=== PATIENT | male | born 1960 | race African-American/Black ===

== ENCOUNTER 2019-08-12 17:31 | Inpatient (IN) | payer MEDICAID ==
[~2019-08-12] VITALS: Ht 170.2 cm; Wt 68.0 kg
[2019-08-12 17:31] VITALS: BP 136/96
[~2019-08-12 17:31] MED LIST: CEPHALEXIN500 MG ORAL; IBUPROFEN600 MG ORAL
--- NOTE | 2019-08-12 17:31 | NUR ---
ED Nurse Note: Pt brought in by ambulance c/o generalized weakness x 4 days. Pt has hx hiv. Respirations even and unlabored on room air. Vitals stable as documented. Left chest defibrilator noted.
--- NOTE | 2019-08-12 17:40 | NUR ---
ED Nurse Note: Patient aslo c/o right shoulder pain. Denies fall/ injury.
--- NOTE | 2019-08-12 17:57 | NUR ---
ED Nurse Note: IV line established. Blood specimen collected and sent to lab.
[2019-08-12 18:52] LABS: ANION GAP 15 mmol/L (5-15); BLOOD UREA NITROGEN 27 mg/dL (7-18); CALCIUM 9.1 MG/DL (8.5-10.1); CARBON DIOXIDE 21 MMOL/L (21-32); CHLORIDE 106 MMOL/L (98-107); CREATININE 2.2 MG/DL (0.55-1.30); POTASSIUM 3.5 MMOL/L (3.5-5.1); SODIUM 142 MMOL/L (136-145)
[2019-08-12 18:59] LABS: BASOPHILS % (AUTO) 1.9 % (0.0-2.0); EOSINOPHILS % (AUTO) 1.2 % (0.0-3.0); HEMOGLOBIN 12.4 G/DL (14.2-18.0); LYMPHOCYTES % (AUTO) 33.4 % (20.0-45.0); MEAN CORPUSCULAR VOLUME 97 FL (80-99); MONOCYTES % (AUTO) 16.1 % (1.0-10.0); NEUTROPHILS % (AUTO) 47.4 % (45.0-75.0); PLATELET COUNT 296 K/UL (150-450); RED CELL DISTRIBUTION WIDTH 18.9 % (11.6-14.8); WHITE BLOOD COUNT 7.8 K/UL (4.8-10.8)
--- NOTE | 2019-08-12 19:05 | NUR ---
HAND-OFF: Report given to Margarita GRIMALDO. Endorsed plan of care.
[2019-08-12 19:10] LABS: ALANINE AMINOTRANSFERASE 85 U/L (12-78); ALBUMIN 3.1 G/DL (3.4-5.0); ALBUMIN/GLOBULIN RATIO 0.8 (1.0-2.7); ALKALINE PHOSPHATASE 168 U/L (46-116); ASPARTATE AMINO TRANSFERASE 101 U/L (15-37); BILIRUBIN,TOTAL 2.1 MG/DL (0.2-1.0)
[2019-08-12 19:11] LABS: BILIRUBIN,DIRECT 1.1 MG/DL (0.0-0.3)
[2019-08-12] MEDS ORDERED: COREG6.25 MG ORAL (19:57)
[2019-08-12] MEDS ORDERED: ASPIR 8181 MG ORAL (19:57)
[2019-08-12] MEDS ORDERED: LISINOPRIL5 MG ORAL (19:57)
[2019-08-12] MEDS ORDERED: GENVOYA TABLET1 EACH PO (19:57)
[2019-08-12] MEDS ORDERED: AMIODARONE HCL100 MG ORAL (19:57)
--- NOTE | 2019-08-12 20:59 | Emergency Room Report ---
History of Present Illness General Chief Complaint: Generalized Weakness Source: Patient, EMS Present Illness HPI 59-year-old male presents ED for evaluation. Brought in by EMS from home. States for the last 4 days has been increasingly short of breath when walking. Notes some shortness of breath when talking. Denies fevers or chills. Denies chest pain. History of ICD. History of HIV. States he is compliant with his medications. No other aggravating relieving factors. Denies any other associated symptoms Allergies: Coded Allergies: No Known Allergies (Verified , 05/29/07) Patient History Past Medical History: HTN, VA, HIV Past Surgical History: none Pertinent Family History: none Social History: Denies: smoking, alcohol use, drug use Immunizations: UTD Reviewed Nursing Documentation: PMH: Agreed; PSxH: Agreed Nursing Documentation-PMH Hx Cardiac Problems: Yes - VA 2004 HIV+ Hx Hypertension: Yes Review of Systems All Other Systems: negative except mentioned in HPI Physical Exam Vital Signs Date Time Temp Pulse Resp B/P (MAP) Pulse Ox O2 Delivery O2 Flow Rate FiO2 08/12/19 17:15 98.4 69 18 136/96 (109) 98 Room Air Sp02 EP Interpretation: reviewed, normal General Appearance: no apparent distress, alert, GCS 15, non-toxic Head: normocephalic, atraumatic Eyes: bilateral eye normal inspection, bilateral eye PERRL ENT: hearing grossly normal, normal pharynx, no angioedema, normal voice Neck: full range of motion, supple/symm/no masses Respiratory: chest non-tender, lungs clear, normal breath sounds, speaking full sentences Cardiovascular #1: regular rate, rhythm, no edema Cardiovascular #2: 2+ carotid (R), 2+ carotid (L), 2+ radial (R), 2+ radial (L) , 2+ dorsalis pedis (R), 2+ dorsalis pedis (L) Gastrointestinal: normal bowel sounds, non tender, soft, non-distended, no guarding, no rebound Rectal: deferred Genitourinary: normal inspection, no CVA tenderness Musculoskeletal: back normal, normal range of motion, gait/station normal, non- tender Neurologic: alert, motor strength/tone normal, oriented x3, sensory intact, responsive, speech normal Psychiatric: judgement/insight normal, memory normal, mood/affect normal, no suicidal/homicidal ideation Reflexes: 3+ bicep (R), 3+ bicep (L), 3+ tricep (R), 3+ tricep (L), 3+ knee (R) , 3+ knee (L) Lymphatic: no adenopathy Medical Decision Making Diagnostic Impression: Primary Impression: CHF exacerbation Qualified Codes: I50.9 - Heart failure, unspecified Additional Impressions: HIV disease ICD (implantable cardioverter-defibrillator) in place Renal insufficiency ER Course Hospital Course 59-year-old male presents ED complaining of shortness of breath Differential diagnoses include: VA/unstable angina, contusion, muscle strain, PTX, rib fracture Clinical course Patient placed on stretcher. 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 After initial history and physical I ordered labs, EKG, chest x-ray labs reviewed- no leukocytosis, hemoglobin/hematocrit stable, BUN/creatinine elevated, troponins negative, BNP elevated EKG - NSR, no acute ischemic changes intepreted by me Chest x-ray- cardiomegaly. interstitial congestion. ICD Lasix given. Case discussed with Dr. Soni and he agreed to accept the patient to his service for further care and support I. I feel this is a highly complex case requiring extensive working including EKG/Rhythm strip, Xray/CT/US, Blood/urine lab work, repeat exams while in ED, and administration of strong opiates/narcotics for pain control, admission to hospital or close patient follow up. Diagnosis - CHF exacerbation, renal insufficiency, HIV, ICD admitted to telemetry in serious condition Labs Test 08/12/19 18:22 White Blood Count 7.8 K/UL (4.8-10.8) Red Blood Count 4.10 M/UL (4.70-6.10) Hemoglobin 12.4 G/DL (14.2-18.0) Hematocrit 40.0 % (42.0-52.0) Mean Corpuscular Volume 97 FL (80-99) Mean Corpuscular Hemoglobin 30.3 PG (27.0-31.0) Mean Corpuscular Hemoglobin Concent 31.1 G/DL (32.0-36.0) Red Cell Distribution Width 18.9 % (11.6-14.8) Platelet Count 296 K/UL (150-450) Mean Platelet Volume 9.2 FL (6.5-10.1) Neutrophils (%) (Auto) 47.4 % (45.0-75.0) Lymphocytes (%) (Auto) 33.4 % (20.0-45.0) Monocytes (%) (Auto) 16.1 % (1.0-10.0) Eosinophils (%) (Auto) 1.2 % (0.0-3.0) Basophils (%) (Auto) 1.9 % (0.0-2.0) Sodium Level 142 MMOL/L (136-145) Potassium Level 3.5 MMOL/L (3.5-5.1) Chloride Level 106 MMOL/L (98-107) Carbon Dioxide Level 21 MMOL/L (21-32) Anion Gap 15 mmol/L (5-15) Blood Urea Nitrogen 27 mg/dL (7-18) Creatinine 2.2 MG/DL (0.55-1.30) Estimat Glomerular Filtration Rate 37.1 mL/min (>60) Glucose Level 135 MG/DL (74-106) Calcium Level 9.1 MG/DL (8.5-10.1) Total Bilirubin 2.1 MG/DL (0.2-1.0) Direct Bilirubin 1.1 MG/DL (0.0-0.3) Aspartate Amino Transf (AST/SGOT) 101 U/L (15-37) Alanine Aminotransferase (ALT/SGPT) 85 U/L (12-78) Alkaline Phosphatase 168 U/L (46-116) Troponin I 0.016 ng/mL (0.000-0.056) Pro-B-Type Natriuretic Peptide 6982 pg/mL (0-125) Total Protein 7.0 G/DL (6.4-8.2) Albumin 3.1 G/DL (3.4-5.0) Globulin 3.9 g/dL Albumin/Globulin Ratio 0.8 (1.0-2.7) EKG Diagnostic Results Rate: normal Rhythm: NSR ST Segments: no acute changes ASA given to the pt in ED: No Rhythm Strip Diag. Results EP Interpretation: yes Rhythm: NSR, no PVC's, no ectopy Chest X-Ray Diagnostic Results Chest X-Ray Diagnostic Results : Chest X-Ray Ordered: Yes # of Views/Limited/Complete: 1 View Indication: Shortness of Breath EP Interpretation: Yes Interpretation: no consolidation, no effusion, other - cardiomegaly. interstitial congestion. ICD Impression: Other - CHF Electronically Signed by: Electronically signed by Jamal Young MD Last Vital Signs Date Time Temp Pulse Resp B/P (MAP) Pulse Ox O2 Delivery O2 Flow Rate FiO2 08/12/19 17:31 98.4 69 18 136/96 98 Room Air Status: improved Disposition: ADMITTED INPATIENT Condition: Serious Referrals: [facility],REFERRING (PCP) Jamal Young MD Aug 12, 2019 20:59
[2019-08-12 21:00] VITALS: BP 132/89
--- NOTE | 2019-08-12 21:00 | NUR ---
ED Nurse Note: Pt resting in bed, eyes open, states he feels anxious, provided therapeutic listening. will continue to monitor
[2019-08-12 23:00] VITALS: BP 134/92
--- NOTE | 2019-08-12 23:07 | NUR ---
ED Nurse Note: Pt resting in bed with eyes closed, non-labored breathing, no signs of distress. Will continue to monitor
[2019-08-13 01:00] VITALS: BP 138/67
--- NOTE | 2019-08-13 02:21 | NUR ---
ED Nurse Note: Pt palced in [place] bed
[2019-08-13 03:00] VITALS: BP 124/68
--- NOTE | 2019-08-13 04:30 | NUR ---
ED Nurse Note: Pt resting in bed, no signs of distress. offered water and juice, will continue to monitor
[2019-08-13 05:08] VITALS: BP 132/71
--- NOTE | 2019-08-13 07:04 | NUR ---
HAND-OFF: Report given to DILLAN Palm.
--- NOTE | 2019-08-13 07:10 | NUR ---
ED Nurse Note: Report received from DILLAN Avila. Pt in stable condition, sleeping in bed. No signs of acute distress noted.
--- NOTE | 2019-08-13 07:45 | NUR ---
ED Nurse Note: Report given to DILLAN Alarcon on 2 E
--- NOTE | 2019-08-13 08:00 | NUR ---
ED Nurse Note: Pt transported safely to 2E on monitor. DILLAN Barron @ bedside, belongings verified.
--- NOTE | 2019-08-13 08:00 | NUR ---
NURSE NOTES: Received report from Arpita ED RN. Pt is A/Ox4, breathing even and unlabored in RA. Pt denies any pain, no s/sx of acute distress. Tele monitor attached, assessment performed, vitals obtained. Bed on lowest position, call light within reach. Will contact the primary MD to get admission orders. Will continue to monitor.
[2019-08-13] MEDS: Aspirin Baby 81mg ORAL SCH (11:06)
[2019-08-13] MEDS: Amiodarone 200mg tab ORAL SCH (11:07)
[2019-08-13] MEDS: Lisinopril 2.5mg tab ORAL SCH (11:07)
[2019-08-13] MEDS: Carvedilol 6.25mg Tab ORAL SCH ×2 (11:07→21:23)
--- NOTE | 2019-08-13 11:59 | Cardiac Electrophysiology PN ---
Subjective Subjective [id number] Objective Last 24 Hour Vital Signs Date Time Temp Pulse Resp B/P (MAP) Pulse Ox O2 Delivery O2 Flow Rate FiO2 08/13/19 11:07 135/74 08/13/19 11:07 74 135/74 08/13/19 08:41 Room Air 08/13/19 08:00 98.2 74 14 135/74 99 Room Air 08/13/19 05:08 98.4 71 14 132/71 99 Room Air 08/13/19 03:00 98.1 69 18 124/68 99 Room Air 08/13/19 01:00 98.1 67 18 138/67 99 Room Air 08/12/19 23:00 98.1 65 16 134/92 98 Room Air 08/12/19 21:00 98.2 72 16 132/89 98 Room Air 08/12/19 17:31 98.4 69 18 136/96 98 Room Air 08/12/19 17:31 69 18 Room Air 08/12/19 17:15 98.4 69 18 136/96 (109) 98 Room Air Intake and Output 08/12/19 08/13/19 19:00 07:00 Output Total 1800 ml Balance -1800 ml Output Urine Total 1800 ml Laboratory Tests Test 08/12/19 18:22 White Blood Count 7.8 K/UL (4.8-10.8) Red Blood Count 4.10 M/UL (4.70-6.10) L Hemoglobin 12.4 G/DL (14.2-18.0) L Hematocrit 40.0 % (42.0-52.0) L Mean Corpuscular Volume 97 FL (80-99) Mean Corpuscular Hemoglobin 30.3 PG (27.0-31.0) Mean Corpuscular Hemoglobin Concent 31.1 G/DL (32.0-36.0) L Red Cell Distribution Width 18.9 % (11.6-14.8) H Platelet Count 296 K/UL (150-450) Mean Platelet Volume 9.2 FL (6.5-10.1) Neutrophils (%) (Auto) 47.4 % (45.0-75.0) Lymphocytes (%) (Auto) 33.4 % (20.0-45.0) Monocytes (%) (Auto) 16.1 % (1.0-10.0) H Eosinophils (%) (Auto) 1.2 % (0.0-3.0) Basophils (%) (Auto) 1.9 % (0.0-2.0) Sodium Level 142 MMOL/L (136-145) Potassium Level 3.5 MMOL/L (3.5-5.1) Chloride Level 106 MMOL/L (98-107) Carbon Dioxide Level 21 MMOL/L (21-32) Anion Gap 15 mmol/L (5-15) Blood Urea Nitrogen 27 mg/dL (7-18) H Creatinine 2.2 MG/DL (0.55-1.30) H Estimat Glomerular Filtration Rate 37.1 mL/min (>60) Glucose Level 135 MG/DL (74-106) H Calcium Level 9.1 MG/DL (8.5-10.1) Total Bilirubin 2.1 MG/DL (0.2-1.0) H Direct Bilirubin 1.1 MG/DL (0.0-0.3) H Aspartate Amino Transf (AST/SGOT) 101 U/L (15-37) H Alanine Aminotransferase (ALT/SGPT) 85 U/L (12-78) H Alkaline Phosphatase 168 U/L (46-116) H Troponin I 0.016 ng/mL (0.000-0.056) Pro-B-Type Natriuretic Peptide 6982 pg/mL (0-125) H Total Protein 7.0 G/DL (6.4-8.2) Albumin 3.1 G/DL (3.4-5.0) L Globulin 3.9 g/dL Albumin/Globulin Ratio 0.8 (1.0-2.7) L Jesus Eid MD Aug 13, 2019 11:59
--- NOTE | 2019-08-13 12:33 | Diagnostic Imaging Report ---
Indication: Dyspnea Comparison: 06/16/2008 A single view chest radiograph was obtained. Findings: The heart is enlarged. Pulmonary vascularity is mildly prominent. There is a pacemaker on the left again noted. Bones are osteopenic. There is an irregularity of the right first rib which may been present previously. This appears to be an old fracture which should be an unusual location for a rib fracture. IMPRESSION: Mild CHF suspected. Unusual appearance of the right first rib
--- NOTE | 2019-08-13 16:29 | Diagnostic Imaging Report ---
Indication: Abdominal pain Technique: Grayscale and duplex Doppler imaging of the abdomen performed. Comparison: None Findings: The liver is unremarkable. Doppler interrogation of the main portal vein shows patency. There is no definite surface nodularity of the liver. The spleen is normal size. There is no biliary ductal dilatation identified. Gallbladder is unremarkable. There demonstrated part of the pancreas, aorta and IVC show no definite abnormalities. Both kidneys appear unremarkable. There is no hydronephrosis. Left kidney is 9.2 cm. Right kidney 8.9 cm in length. There is some thickening of the wall the urinary bladder. The prostate is normal in size. IMPRESSION: No acute findings. Mild thickening of the bladder wall. Correlate for chronic cystitis.
--- NOTE | 2019-08-13 16:45 | History and Physical Report ---
DATE OF ADMISSION: 08/12/2019 DATE AND TIME SEEN: 08/13/2019 at 2 p.m. CONSULTANTS: 1. Alfredo Bettencourt M.D. 2. Jesus Eid M.D. 3. Norman Pope M.D CHIEF COMPLAINT: Short of breath, renal insufficiency, CHF. BRIEF HISTORY: This is a 59-year-old male with history of HIV presents with 2 days increased shortness of breath, came to [facility], diagnosed with the above, admitted to medical floor for further treatment. Currently, calm in bed, feeling little bit better. No complaint. REVIEW OF SYSTEMS: No chest pain. Slight short of breath. No nausea, vomiting, or diarrhea. PAST MEDICAL HISTORY: Includes CHF, HIV, and renal insufficiency. PAST SURGICAL HISTORY: ICD. MEDICATIONS: Furosemide, amiodarone, aspirin, carvedilol, lisinopril, ibuprofen. ALLERGIES: Denies. SOCIAL HISTORY: Positive smoke. Occasional alcohol. Positive marijuana use. PHYSICAL EXAMINATION: GENERAL: Calm in bed, oriented x3, no acute distress. VITAL SIGNS: Temperature is 98 degrees, pulse 74, respirations 14, blood pressure 135/74. CARDIOVASCULAR: No murmur. LUNGS: Poor air exchange. ABDOMEN: Bowel sound distant. EXTREMITIES: No cyanosis, clubbing, or edema. NEUROLOGIC: The patient moves all extremities, slightly weak. LABORATORY AND DIAGNOSTIC DATA: Labs at this time show hemoglobin and hematocrit 12/40, otherwise CBC is normal. BMP shows BUN/creatinine 27/2.2. Glucose 135. Troponin 0.016. BNP 6982. Albumin 3.1. ASSESSMENT: 1. Shortness of breath. 2. Renal insufficiency. 3. Anemia. 4. CHF. 5. Malnutrition. 6. HIV. PLAN: 1. O2, pulmonary treatment. 2. Blood pressure, pain control. 3. Dietary followup. 4. PT, dietary evaluation. 5. CBC, BMP in the morning. 6. Nephrology evaluation by Dr. Rivera. Prakash Soni D.O. DR: DELGADO JOB#: [id number] CC:
--- NOTE | 2019-08-13 17:45 | Consultation ---
DATE OF CONSULTATION: 08/13/2019 CONSULTING PHYSICIAN: Marshall Rivera M.D. REFERRING PHYSICIAN: Prakash Soni D.O. REASON FOR CONSULTATION: 1. Acute kidney injury. 2. CKD, stage 3B. Baseline creatinine 1.5. HISTORY OF PRESENT ILLNESS: The patient is a 59-year-old gentleman admitted overnight for further evaluation and care from home by EMS for four days of worsening shortness of breath and difficulty walking. The patient states that he has noted that with increased walking, his shortness of breath has been worsened. He has been on HIV medications and compliant and recently had to be changed due to an elevation in creatinine. The patient states the last creatinine by his HIV doctor noted was 1.5. Denies any current nausea, vomiting, or diarrhea. PAST MEDICAL HISTORY: 1. Hypertension. 2. Myocardial infarction. 3. HIV. 4. CKD, stage 3B. PAST SURGICAL HISTORY: None. ALLERGIES: No known drug allergies. FAMILY HISTORY: Hypertension. SOCIAL HISTORY: No tobacco, alcohol, or illicit drug use. REVIEW OF SYSTEMS: NEUROLOGIC: The patient denies headache, change in vision, syncope, or presyncopal episodes. CARDIOVASCULAR: No current chest pain, palpitations, or angina. PULMONARY: No difficulty breathing, productive cough, or sputum. GASTROINTESTINAL/GENITOURINARY: No change in urinary or bowels habits. No nausea, vomiting, or diarrhea. ENDOCRINOLOGY: No night sweats, fever, or chills. MUSCULOSKELETAL: The patient is feeling weak, tired and fatigued. PHYSICAL EXAMINATION: VITAL SIGNS: Blood pressure 135/74, pulse 74, temperature 98.2, and respiratory rate 14. 99% oxygen saturation on room air. GENERAL: The patient is awake and alert, not in distress. HEENT: Extraocular muscles intact. No lymphadenopathy noted. Oropharyngeal mucosa is clear and dry. CARDIOVASCULAR: S1, S2. No rubs or gallops. Regular rate. PULMONARY: Clear to auscultation bilaterally. No rales, rhonchi or wheezes. ABDOMEN: Nondistended and nontender. EXTREMITIES: No edema noted. LABORATORY DATA: Labs dated August 12, 2019, white cell count 7.8 and platelet count 296,000. Creatinine 2.2, potassium 3.5, sodium 142. ASSESSMENT AND PLAN: 1. Acute kidney injury on chronic kidney disease, stage 3B. At this time, most likely secondary to component of volume depletion. At this time, we will discontinue NSAIDs. Have repeated stat laboratories. The patient was given IV fluids in the ER and now is on Lasix. If renal function has not improved, we will temporarily hold Lasix. 2. Mild congestive heart failure. At this time, the patient's volume clinically euvolemic at this time. If renal function is not improving, we will discontinue Lasix and lisinopril. 3. HIV. Infectious Disease to evaluate and manage. Marshall Rivera MD DR: MURALI JOB#: [id number] CC:
[2019-08-13 17:48] LABS: ANION GAP 16 mmol/L (5-15); BLOOD UREA NITROGEN 26 mg/dL (7-18); CALCIUM 8.7 MG/DL (8.5-10.1); CARBON DIOXIDE 23 MMOL/L (21-32); CHLORIDE 106 MMOL/L (98-107); CREATININE 1.7 MG/DL (0.55-1.30); POTASSIUM 3.4 MMOL/L (3.5-5.1); SODIUM 145 MMOL/L (136-145)
--- NOTE | 2019-08-13 19:36 | NUR ---
HAND-OFF: Report given to DILLAN Howell. Endorsed plan of care. Pt in stable condition.
--- NOTE | 2019-08-13 19:37 | NUR ---
NURSE NOTES: Got report from Beatrice GRIMALDO. Pt in stable condition. Denies any pain. No s/s of distress or discomfort noted. Pt resting in bed comfortably. Bed in low and locked position, call light within reach, bedside table within reach. Continue to monitor.
[2019-08-13 20:00] VITALS: BP 126/87
--- NOTE | 2019-08-13 20:45 | Consultation ---
DATE OF CONSULTATION: 08/13/2019 CONSULTING PHYSICIAN: Jesus Eid MD REFERRING PHYSICIAN: Prakash Soni MD REASON FOR CONSULTATION: Management of chronic congestive heart failure and evaluation of the patient's defibrillator. HISTORY OF PRESENT ILLNESS: This is a 59-year-old gentleman with history of hypertension, congestive heart failure, history of HIV, as well as a history of [employer] defibrillator implantation that was originally placed by in [place] in 2006. The patient subsequently underwent a defibrillator generator change in 2014. The patient came to the emergency room for increasing shortness of breath as well as lower extremity edema for last 4 days. The patient states that he has been compliant with his medication and remembers the name of his medication as well. He denies getting shocks from his defibrillator. He also takes amiodarone that he says is because of irregular heartbeat, most likely atrial fibrillation, but is not taking any anticoagulation. REVIEW OF SYSTEMS: Review of systems was negative other than what was mentioned in the history of present illness. PAST MEDICAL HISTORY: As mentioned above. FAMILY HISTORY: Noncontributory. SOCIAL HISTORY: He lives at home. Does not smoke or drink alcohol. PHYSICAL EXAMINATION: VITAL SIGNS: Blood pressure is 136/90, pulse is 69, respirations 18, and temperature is 98. HEAD AND NECK: Shows mild JVD. LUNGS: Decreased breath sounds. CARDIOVASCULAR: Shows regular S1 and S2 with no gallop or murmur. ABDOMEN: Soft. EXTREMITIES: 2+ pitting edema. He has a defibrillator in left subclavian. LABORATORY AND DIAGNOSTIC DATA: His labs show white count of 7.8, hemoglobin of 12.4, hematocrit of 40, and platelet count is 296. Sodium is 142, potassium 3.5, BUN of 27, creatinine 2.2, and glucose of 135. His troponin is negative. Total bilirubin is 2.1. His EKG shows sinus rhythm with first-degree AV block, but it is very artifactual EKG. ASSESSMENT AND PLAN: 1. CHF exacerbation. Increase the Lasix to 40 mg IV b.i.d. The patient is also on Coreg 6.25 mg b.i.d. as well as lisinopril 5 mg daily. Hold off on Aldactone in view of renal failure for risk of hyperkalemia. 2. Paroxysmal atrial fibrillation, currently in sinus rhythm. We will repeat EKG on aspirin 81 mg daily. 3. Shortness of breath and respiratory failure. Further evaluation by Dr. Bettencourt. 4. Status post [employer] defibrillator implantation. Defibrillator will be interrogated for further evaluation and management. Thank you very much for allowing me to participate in the care of this patient. Please do not hesitate to contact me for any questions regarding my evaluation. Jesus Eid M.D. DR: HERIBERTO JOB#: [id number] CC:
[2019-08-14] VITALS: BP 107/66
[2019-08-14] MEDS ORDERED: Zolpidem 5mg tab ORAL PRN (03:45)
[2019-08-14 04:00] VITALS: BP 117/62
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
[2019-08-14 07:38] LABS: BASOPHILS % (AUTO) 1.7 % (0.0-2.0); EOSINOPHILS % (AUTO) 2.6 % (0.0-3.0); HEMATOCRIT 35.3 % (42.0-52.0); HEMOGLOBIN 11.8 G/DL (14.2-18.0); LYMPHOCYTES % (AUTO) 29.5 % (20.0-45.0); MEAN CORPUSCULAR VOLUME 95 FL (80-99); NEUTROPHILS % (AUTO) 50.2 % (45.0-75.0); PLATELET COUNT 300 K/UL (150-450); RED BLOOD COUNT 3.73 M/UL (4.70-6.10); RED CELL DISTRIBUTION WIDTH 17.3 % (11.6-14.8); WHITE BLOOD COUNT 7.3 K/UL (4.8-10.8)
--- NOTE | 2019-08-14 07:43 | NUR ---
HAND-OFF: Report given to Odette GRIMALDO.
[2019-08-14 07:55] LABS: ANION GAP 13 mmol/L (5-15); BLOOD UREA NITROGEN 26 mg/dL (7-18); CALCIUM 8.8 MG/DL (8.5-10.1); CARBON DIOXIDE 22 MMOL/L (21-32); CHLORIDE 106 MMOL/L (98-107); POTASSIUM 3.4 MMOL/L (3.5-5.1); SODIUM 141 MMOL/L (136-145)
[2019-08-14 08:00] VITALS: BP 121/92
--- NOTE | 2019-08-14 08:00 | NUR ---
NURSE NOTES: Received patient from Corinna Howell. Patient is awake and alert sitting up in bed. eating breakfast. Denies pain or discomfort at thus time. Reminded patient re: fall and safety precautions. Encouraged to use call garcia heather is within patients reach. will follow.
--- NOTE | 2019-08-14 09:23 | Nephrology Progress Note ---
Assessment/Plan Assessment/Plan: A/P 1. YANIRA on CKD, stage 3B. -secondary to component of volume depletion. -discontinue NSAIDs. - cr at 2 2. Mild congestive heart failure. -change lasix to po and continue Lisinopril. No Ibuprofen 3. HIV. Infectious Disease to evaluate and manage. Subjective Date patient seen: Aug 14, 2019 Time patient seen: 09:20 ROS Limited/Unobtainable: No Allergies: Coded Allergies: No Known Allergies (Verified , 05/29/07) Subjective Feeling better in no distress Objective Last 24 Hour Vital Signs Date Time Temp Pulse Resp B/P (MAP) Pulse Ox O2 Delivery O2 Flow Rate FiO2 08/14/19 08:00 97.2 63 18 121/92 (102) 98 08/14/19 04:00 61 08/14/19 04:00 97.0 62 16 117/62 (80) 95 08/14/19 00:00 97.2 61 16 107/66 (80) 99 08/14/19 00:00 63 08/13/19 21:54 98.2 08/13/19 21:23 65 126/87 08/13/19 21:00 Room Air 08/13/19 20:00 97.3 63 16 126/87 (100) 95 08/13/19 20:00 66 08/13/19 16:00 64 08/13/19 11:52 68 08/13/19 11:07 135/74 08/13/19 11:07 74 135/74 Intake and Output 08/13/19 08/14/19 19:00 07:00 Intake Total 480 ml Balance 480 ml Intake Oral 480 ml # Voids 3 3 Laboratory Tests 08/13/19 16:00: Sodium Level 145, Potassium Level 3.4L, Chloride Level 106, Carbon Dioxide Level 23, Anion Gap 16H, Blood Urea Nitrogen 26H, Creatinine 1.7H, Estimat Glomerular Filtration Rate 49.9, Glucose Level 88, Calcium Level 8.7 08/14/19 05:46: Sodium Level 141, Potassium Level 3.4L, Chloride Level 106, Carbon Dioxide Level 22, Anion Gap 13, Blood Urea Nitrogen 26H, Creatinine 2.0H, Estimat Glomerular Filtration Rate 41.3, Glucose Level 116H, Calcium Level 8.8, White Blood Count 7.3, Red Blood Count 3.73L, Hemoglobin 11.8L, Hematocrit 35.3L, Mean Corpuscular Volume 95, Mean Corpuscular Hemoglobin 31.7H, Mean Corpuscular Hemoglobin Concent 33.6, Red Cell Distribution Width 17.3H, Platelet Count 300, Mean Platelet Volume 8.8, Neutrophils (%) (Auto) 50.2, Lymphocytes (%) (Auto) 29.5, Monocytes (%) (Auto) 16.0H, Eosinophils (%) (Auto) 2.6, Basophils (%) ( Auto) 1.7, Troponin I 0.014, Pro-B-Type Natriuretic Peptide 4707H, Thyroid Stimulating Hormone (TSH) 2.163 Height (Feet): 5 Height (Inches): 7.00 Weight (Pounds): 150 General Appearance: no apparent distress EENT: normal ENT inspection Neck: normal alignment, supple Cardiovascular: normal rate Respiratory/Chest: rhonchi - bilaterally Abdomen: non tender, soft Edema: no edema noted Arm (L), no edema noted Arm (R), no edema noted Leg (L), no edema noted Leg (R), no edema noted Pedal (L), no edema noted Pedal (R), no edema noted Generalized Marshall Rivera MD Aug 14, 2019 09:23
[2019-08-14] MEDS: Amiodarone 200mg tab ORAL SCH (09:47)
[2019-08-14] MEDS: Carvedilol 6.25mg Tab ORAL SCH ×2 (09:47→20:31)
[2019-08-14] MEDS: Aspirin Baby 81mg ORAL SCH (09:47)
[2019-08-14] MEDS: Lisinopril 2.5mg tab ORAL SCH (09:48)
--- NOTE | 2019-08-14 09:49 | General Progress Note ---
Assessment/Plan Problem List: (1) SOB (shortness of breath) ICD Codes: R06.02 - Shortness of breath SNOMED: 968939663 (2) Renal insufficiency ICD Codes: N28.9 - Disorder of kidney and ureter, unspecified SNOMED: 391315853, 955927419 (3) HIV disease ICD Codes: B20 - Human immunodeficiency virus [HIV] disease SNOMED: 51967020 (4) CHF exacerbation ICD Codes: I50.9 - Heart failure, unspecified SNOMED: 098821375, [id number] Qualifiers: Qualified Codes: I50.9 - Heart failure, unspecified (5) ICD (implantable cardioverter-defibrillator) in place ICD Codes: Z95.810 - Presence of automatic (implantable) cardiac defibrillator SNOMED: 873370282, 678848792 Status: stable, progressing Assessment/Plan: o2 pulm tx pt diet cbc bmp am dc plan Subjective Constitutional: Reports: weakness Allergies: Coded Allergies: No Known Allergies (Verified , 05/29/07) All Systems: reviewed and negative except above Subjective sitting calm Objective Last 24 Hour Vital Signs Date Time Temp Pulse Resp B/P (MAP) Pulse Ox O2 Delivery O2 Flow Rate FiO2 08/14/19 08:00 97.2 63 18 121/92 (102) 98 08/14/19 04:00 61 08/14/19 04:00 97.0 62 16 117/62 (80) 95 08/14/19 00:00 97.2 61 16 107/66 (80) 99 08/14/19 00:00 63 08/13/19 21:54 98.2 08/13/19 21:23 65 126/87 08/13/19 21:00 Room Air 08/13/19 20:00 97.3 63 16 126/87 (100) 95 08/13/19 20:00 66 08/13/19 16:00 64 08/13/19 11:52 68 08/13/19 11:07 135/74 08/13/19 11:07 74 135/74 Intake and Output 08/13/19 08/14/19 19:00 07:00 Intake Total 480 ml Balance 480 ml Intake Oral 480 ml # Voids 3 3 Laboratory Tests 08/13/19 16:00: Sodium Level 145, Potassium Level 3.4L, Chloride Level 106, Carbon Dioxide Level 23, Anion Gap 16H, Blood Urea Nitrogen 26H, Creatinine 1.7H, Estimat Glomerular Filtration Rate 49.9, Glucose Level 88, Calcium Level 8.7 08/14/19 05:46: Sodium Level 141, Potassium Level 3.4L, Chloride Level 106, Carbon Dioxide Level 22, Anion Gap 13, Blood Urea Nitrogen 26H, Creatinine 2.0H, Estimat Glomerular Filtration Rate 41.3, Glucose Level 116H, Calcium Level 8.8, White Blood Count 7.3, Red Blood Count 3.73L, Hemoglobin 11.8L, Hematocrit 35.3L, Mean Corpuscular Volume 95, Mean Corpuscular Hemoglobin 31.7H, Mean Corpuscular Hemoglobin Concent 33.6, Red Cell Distribution Width 17.3H, Platelet Count 300, Mean Platelet Volume 8.8, Neutrophils (%) (Auto) 50.2, Lymphocytes (%) (Auto) 29.5, Monocytes (%) (Auto) 16.0H, Eosinophils (%) (Auto) 2.6, Basophils (%) ( Auto) 1.7, Troponin I 0.014, Pro-B-Type Natriuretic Peptide 4707H, Thyroid Stimulating Hormone (TSH) 2.163 Height (Feet): 5 Height (Inches): 7.00 Weight (Pounds): 150 General Appearance: lethargic EENT: normal ENT inspection Neck: normal alignment Cardiovascular: normal peripheral pulses, normal rate, regular rhythm Respiratory/Chest: chest wall non-tender, lungs clear, normal breath sounds Abdomen: normal bowel sounds, non tender, soft Extremities: normal inspection Edema: no edema noted Arm (L), no edema noted Arm (R), no edema noted Leg (L), no edema noted Leg (R), no edema noted Pedal (L), no edema noted Pedal (R), no edema noted Generalized Neurologic: responsive, motor weakness Skin: normal pigmentation, warm/dry Prakash Soni DO Aug 14, 2019 09:49
[2019-08-14] MEDS: Morphine Sulfate 2mg/ml Inj(IV/IM USE ONLY) IVP PRN ×2 (09:57→19:57)
--- NOTE | 2019-08-14 10:30 | Consultation ---
DATE OF CONSULTATION: 08/13/2019 PULMONARY CONSULTATION CONSULTING PHYSICIAN: Alfredo Bettecnourt M.D. HISTORY OF PRESENT ILLNESS: This is a 59-year-old male, who came to the hospital with shortness of breath. He thinks this is worse when he walks. He denies any cough, fever, or phlegm. The patient has a history of cardiac condition, has an ICD in place. He is also known to be HIV positive. PAST MEDICAL HISTORY: Hypertension, CAD, HIV, cardiomyopathy. SURGICAL HISTORY: None. FAMILY HISTORY: None. PSYCHIATRIC HISTORY: None. MEDICATIONS: His list of home medication includes currently Lasix only. Per review of documentation from 2017, the patient was last seen here at that time. At that time, also was noted that he was not taking any medications, although he has a history of HIV and ICD. REVIEW OF SYSTEMS: Denies any headaches, hematemesis, melena, hematochezia, or weight loss. PHYSICAL EXAMINATION: VITAL SIGNS: Blood pressure is 130/60, heart rate 84, respirations 18, afebrile. GENERAL: Reveals a 59-year-old male. HEENT: Unremarkable. LUNGS: Clear breath sounds bilaterally. HEART: Normal heart sounds. ABDOMEN: Soft. EXTREMITIES: There is no edema. LABORATORY AND DIAGNOSTIC DATA: Lab testing at this time is remarkable only for hemoglobin 12.4, total bilirubin is 2.1. AST, ALT elevated. Alkaline phosphatase 168, creatinine 2.2. Troponin 0.16. The patient underwent imaging studies, which showed cardiomegaly and 01:57 congestion. IMPRESSION: 1. HIV. 2. ICD. 3. Cardiomyopathy. DISCUSSION: Admitted to the hospital. The patient also has renal failure and abnormal LFTs. We will do ultrasound of the abdomen. Check hepatitis serology. Needs cardiac consultation. We will follow. Alfredo Bettencourt M.D. DR: MIGUEL A JOB#: [id number] CC:
--- NOTE | 2019-08-14 10:50 | NUR ---
RD ASSESSMENT & RECOMMENDATIONS SEE CARE ACTIVITY FOR COMPLETE ASSESSMENT DAILY ESTIMATED NEEDS: Needs based on HIV, cardiac 66.4kg 25-30 kcals/kg 3817-3941 total kcals 1-1.5 g protein/kg 66-100 g total protein Fluid per MD, on lasix NUTRITION DIAGNOSIS: Decreased soduim needs r/t cardiac history, renal dysfunction, and abnormal LFT's as evidenced by elev BP and BNP, elev Creat (2.0), elev T bili (2.1) and LFT's. PO DIET RECOMMENDATIONS: Maintain Cardiac diet ADDITIONAL RECOMMENDATIONS: 1) Obtain daily standing weights on lasix 2) Monitor lytes, replete as needed 3) Add Ensure Enlive qdaily
[2019-08-14 12:00] VITALS: BP 114/86
--- NOTE | 2019-08-14 12:32 | CDS Physician Query ---
Clarification is required for compliance, coding accuracy, and to reflect severity of illness for this patient Dear Dr. Jesus Cope Date: 08/14/2019 Die Presser/CDS Name: Nadine Lainez Clinical Documentation states: HNP: Short of breath, renal insufficiency, CHF... 59-year-old male with history of HIV presents with 2 days increased shortness of breath, came to [place] [facility], diagnosed with the above 08/14 cardio note: CHF exacerbation.EF 15-20%. Continue Lasix 40 mg IV b.i.d. Coreg 6.25 mg b.i.d. as well as lisinopril 5 mg daily. Hold off on Aldactone in view of renal failure for risk of hyperkalemia. Please Clarify Type of CHF: [] Systolic [] Diastolic [] Systolic & Diastolic (Combined) [] Other: Present on Admission: [] Yes [] No [] Clinically Undetermined Physician signature Date Please also document in your Progress Notes and/or Discharge Summary and indicate if the condition was present on admission. MTDD
--- NOTE | 2019-08-14 13:55 | NUR ---
P.T Note: P.T evaluation completed. Pt is alert, O x 4, pleasant and cooperative. Pt is functioning at baseline w/o signs of deficits. Pt is independent in all areas of ADL/functional mobilities and gait/locomotion. Current functional statu does not warrant skilled P.T services as time. Encouraged pt OOB activities during stay VS bedrest stay to deconditioning. Pt verbalized understanding. D/C P.T services.
[2019-08-14 16:00] VITALS: BP 122/87
[2019-08-14] MEDS: Docusate 100mg cap ORAL SCH (17:18)
--- NOTE | 2019-08-14 17:51 | Pulmonology Progress Note ---
Assessment/Plan Assessment/Plan IMPRESSION: 1. HIV. 2. ICD. 3. Cardiomyopathy. DISCUSSION: I will review ultrasound of the abdomen. await hepatitis serology. appreciate cardiac consultation. I will follow. Alfredo Bettencourt M.D. Subjective Interval Events: none new reported, seen by cardiology Constitutional: Reports: no symptoms HEENT: Repors: no symptoms Respiratory: Reports: dry cough, shortness of breath Cardiovascular: Reports: no symptoms Gastrointestinal/Abdominal: Reports: no symptoms Allergies: Coded Allergies: No Known Allergies (Verified , 05/29/07) Objective Last 24 Hour Vital Signs Date Time Temp Pulse Resp B/P (MAP) Pulse Ox O2 Delivery O2 Flow Rate FiO2 08/14/19 16:00 97.1 58 17 122/87 (99) 96 08/14/19 16:00 61 08/14/19 12:00 97.1 60 17 114/86 (95) 99 08/14/19 12:00 60 08/14/19 09:48 121/92 08/14/19 09:47 63 121/92 08/14/19 09:00 Room Air 08/14/19 08:00 62 08/14/19 08:00 97.2 63 18 121/92 (102) 98 08/14/19 04:00 61 08/14/19 04:00 97.0 62 16 117/62 (80) 95 08/14/19 00:00 97.2 61 16 107/66 (80) 99 08/14/19 00:00 63 08/13/19 21:54 98.2 08/13/19 21:23 65 126/87 08/13/19 21:00 Room Air 08/13/19 20:00 97.3 63 16 126/87 (100) 95 08/13/19 20:00 66 Intake and Output 08/13/19 08/14/19 19:00 07:00 Intake Total 480 ml Balance 480 ml Intake Oral 480 ml # Voids 3 3 General Appearance: no acute distress HEENT: normocephalic Respiratory/Chest: chest wall non-tender, lungs clear Cardiovascular: normal peripheral pulses Abdomen: normal bowel sounds Laboratory Tests 08/14/19 05:46: White Blood Count 7.3, Red Blood Count 3.73L, Hemoglobin 11.8L, Hematocrit 35.3L , Mean Corpuscular Volume 95, Mean Corpuscular Hemoglobin 31.7H, Mean Corpuscular Hemoglobin Concent 33.6, Red Cell Distribution Width 17.3H, Platelet Count 300, Mean Platelet Volume 8.8, Neutrophils (%) (Auto) 50.2, Lymphocytes (%) (Auto) 29.5, Monocytes (%) (Auto) 16.0H, Eosinophils (%) (Auto) 2.6, Basophils (%) (Auto) 1.7, Sodium Level 141, Potassium Level 3.4L, Chloride Level 106, Carbon Dioxide Level 22, Anion Gap 13, Blood Urea Nitrogen 26H, Creatinine 2.0H, Estimat Glomerular Filtration Rate 41.3, Glucose Level 116H, Calcium Level 8.8, Troponin I 0.014, Pro-B-Type Natriuretic Peptide 4707H, Thyroid Stimulating Hormone (TSH) 2.163 Current Medications Medications (Trade) Dose Ordered Sig/Shemar Route PRN Reason Start Time Stop Time Status Last Admin Dose Admin Amiodarone HCl (Cordarone) 200 mg DAILY ORAL 08/13/19 10:15 09/12/19 10:14 08/14/19 09:47 Aspirin (ASA) 81 mg DAILY ORAL 08/13/19 10:15 09/12/19 10:14 08/14/19 09:47 Bisacodyl (Dulcolax) 10 mg DAILYPRN PRN RECTAL Constipation 08/14/19 16:15 09/13/19 16:14 08/14/19 17:18 Carvedilol (Coreg) 6.25 mg EVERY 12 HOURS ORAL 08/13/19 10:15 09/12/19 10:14 08/14/19 09:47 Docusate Sodium (Colace) 100 mg TWICE A DAY ORAL 08/14/19 18:00 09/13/19 17:59 08/14/19 17:18 Furosemide (Lasix) 40 mg DAILY ORAL 08/15/19 09:00 09/14/19 08:59 Lisinopril (ZestriL) 5 mg DAILY ORAL 08/13/19 10:15 09/12/19 10:14 08/14/19 09:48 Morphine Sulfate (Morphine Sulfate) 2 mg Q4H PRN IVP Severe Pain (Pain Scale 7-10) 08/13/19 20:15 08/20/19 20:14 08/14/19 09:57 Non-Formulary Medication (Non-Formulary Med) 1 ea DAILY ORAL 08/13/19 10:15 09/12/19 10:14 UNV Zolpidem Tartrate (Ambien) 5 mg HSPRN PRN ORAL Insomnia 08/14/19 03:45 08/21/19 03:44 Alfredo Bettencourt MD Aug 14, 2019 17:51
--- NOTE | 2019-08-14 19:47 | NUR ---
HAND-OFF: Report given to Corinna Howell. Plan of care endorsed.
[2019-08-14 20:00] VITALS: BP 132/84
[2019-08-15] VITALS: BP 140/98
[2019-08-15 04:00] VITALS: BP 128/85
[2019-08-15 07:05] LABS: EOSINOPHILS % (AUTO) 1.9 % (0.0-3.0); HEMOGLOBIN 12.2 G/DL (14.2-18.0); LYMPHOCYTES % (AUTO) 25.8 % (20.0-45.0); MEAN CORPUSCULAR VOLUME 95 FL (80-99); MONOCYTES % (AUTO) 18.6 % (1.0-10.0); NEUTROPHILS % (AUTO) 52.7 % (45.0-75.0); PLATELET COUNT 319 K/UL (150-450); RED BLOOD COUNT 3.89 M/UL (4.70-6.10); RED CELL DISTRIBUTION WIDTH 16.9 % (11.6-14.8); WHITE BLOOD COUNT 7.8 K/UL (4.8-10.8)
[2019-08-15 07:07] LABS: ANION GAP 10 mmol/L (5-15); BLOOD UREA NITROGEN 27 mg/dL (7-18); CALCIUM 8.9 MG/DL (8.5-10.1); CARBON DIOXIDE 25 MMOL/L (21-32); CHLORIDE 103 MMOL/L (98-107); CREATININE 1.6 MG/DL (0.55-1.30); SODIUM 138 MMOL/L (136-145)
--- NOTE | 2019-08-15 07:27 | NUR ---
HAND-OFF: Report given to Odette GRIMALDO.
--- NOTE | 2019-08-15 07:28 | NUR ---
NURSE NOTES: Received patient from Corinna Thayer. Patient is awake sitting up in bed. NO complain of pain or discomfort. Patient stated he got a good night sleep. Reminded re: Fall precautions and verbalizes understanding. encouraged used of call garcia that is within reached. Will follow.
[2019-08-15 08:00] VITALS: BP 129/66
[2019-08-15] MEDS ORDERED: Furosemide 40mg tab ORAL SCH (09:00)
[2019-08-15] MEDS: Docusate 100mg cap ORAL SCH (09:12)
[2019-08-15] MEDS: Amiodarone 200mg tab ORAL SCH (09:12)
[2019-08-15] MEDS: Lisinopril 2.5mg tab ORAL SCH (09:12)
[2019-08-15] MEDS: Aspirin Baby 81mg ORAL SCH (09:12)
[2019-08-15] MEDS: Carvedilol 6.25mg Tab ORAL SCH (09:12)
--- NOTE | 2019-08-15 09:47 | Nephrology Progress Note ---
Assessment/Plan Status: stable, progressing Assessment/Plan: A/P 1. CKD, stage 3B. -secondary to component of volume depletion. -discontinued NSAIDs. - Cr down to 1.6 2. Mild congestive heart failure. -changed lasix to po and continue Lisinopril. No Ibuprofen 3. HIV. Infectious Disease to evaluate and manage. OK for DC from renal point Subjective Date patient seen: Aug 15, 2019 Time patient seen: 09:46 ROS Limited/Unobtainable: No Allergies: Coded Allergies: No Known Allergies (Verified , 05/29/07) Subjective Feeling better in no distress. Poss DC Objective Last 24 Hour Vital Signs Date Time Temp Pulse Resp B/P (MAP) Pulse Ox O2 Delivery O2 Flow Rate FiO2 08/15/19 09:12 129/66 08/15/19 09:12 70 129/66 08/15/19 08:00 98.1 70 20 129/66 (87) 96 08/15/19 04:00 97.7 70 16 128/85 (99) 97 08/15/19 04:00 72 08/15/19 00:00 68 08/15/19 00:00 97.5 65 16 140/98 (112) 98 08/14/19 21:00 Room Air 08/14/19 20:31 67 132/84 08/14/19 20:28 97.1 08/14/19 20:00 97.0 67 16 132/84 (100) 95 08/14/19 20:00 64 08/14/19 16:00 97.1 58 17 122/87 (99) 96 08/14/19 16:00 61 08/14/19 12:00 97.1 60 17 114/86 (95) 99 08/14/19 12:00 60 08/14/19 09:48 121/92 08/14/19 09:47 63 121/92 Intake and Output 08/14/19 08/15/19 19:00 07:00 Intake Total 800 ml Balance 800 ml Other 800 ml # Voids 3 Laboratory Tests 08/15/19 05:25: White Blood Count 7.8, Red Blood Count 3.89L, Hemoglobin 12.2L, Hematocrit 37.0L , Mean Corpuscular Volume 95, Mean Corpuscular Hemoglobin 31.5H, Mean Corpuscular Hemoglobin Concent 33.1, Red Cell Distribution Width 16.9H, Platelet Count 319, Mean Platelet Volume 9.7, Neutrophils (%) (Auto) 52.7, Lymphocytes (%) (Auto) 25.8, Monocytes (%) (Auto) 18.6H, Eosinophils (%) (Auto) 1.9, Basophils (%) (Auto) 1.0, Sodium Level 138, Potassium Level 4.0, Chloride Level 103, Carbon Dioxide Level 25, Anion Gap 10, Blood Urea Nitrogen 27H, Creatinine 1.6H, Estimat Glomerular Filtration Rate 53.6, Glucose Level 96, Calcium Level 8.9 Height (Feet): 5 Height (Inches): 7.00 Weight (Pounds): 150 General Appearance: no apparent distress Neck: normal alignment, supple Cardiovascular: normal rate, regular rhythm Respiratory/Chest: lungs clear, normal breath sounds Abdomen: non tender, soft Edema: no edema noted Arm (L), no edema noted Arm (R), no edema noted Leg (L), no edema noted Leg (R), no edema noted Pedal (L), no edema noted Pedal (R), no edema noted Generalized Marshall Rivera MD Aug 15, 2019 09:47
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
--- NOTE | 2019-08-15 10:33 | Pulmonology Progress Note ---
Assessment/Plan Assessment/Plan IMPRESSION: 1. HIV. 2. ICD. 3. Cardiomyopathy. DISCUSSION: Doing better Reviewed cultures; all negative Agree with DC plans Alfredo Bettencourt M.D. Subjective Interval Events: None new Constitutional: Reports: no symptoms HEENT: Repors: no symptoms Respiratory: Reports: no symptoms Cardiovascular: Reports: no symptoms Allergies: Coded Allergies: No Known Allergies (Verified , 05/29/07) Objective Last 24 Hour Vital Signs Date Time Temp Pulse Resp B/P (MAP) Pulse Ox O2 Delivery O2 Flow Rate FiO2 08/15/19 09:12 129/66 08/15/19 09:12 70 129/66 08/15/19 09:00 Room Air 08/15/19 08:00 98.1 70 20 129/66 (87) 96 08/15/19 08:00 72 08/15/19 04:00 97.7 70 16 128/85 (99) 97 08/15/19 04:00 72 08/15/19 00:00 68 08/15/19 00:00 97.5 65 16 140/98 (112) 98 08/14/19 21:00 Room Air 08/14/19 20:31 67 132/84 08/14/19 20:28 97.1 08/14/19 20:00 97.0 67 16 132/84 (100) 95 08/14/19 20:00 64 08/14/19 16:00 97.1 58 17 122/87 (99) 96 08/14/19 16:00 61 08/14/19 12:00 97.1 60 17 114/86 (95) 99 08/14/19 12:00 60 Intake and Output 08/14/19 08/15/19 19:00 07:00 Intake Total 800 ml Balance 800 ml Other 800 ml # Voids 3 General Appearance: no acute distress HEENT: normocephalic Respiratory/Chest: chest wall non-tender Cardiovascular: normal peripheral pulses Abdomen: normal bowel sounds Laboratory Tests 08/15/19 05:25: White Blood Count 7.8, Red Blood Count 3.89L, Hemoglobin 12.2L, Hematocrit 37.0L , Mean Corpuscular Volume 95, Mean Corpuscular Hemoglobin 31.5H, Mean Corpuscular Hemoglobin Concent 33.1, Red Cell Distribution Width 16.9H, Platelet Count 319, Mean Platelet Volume 9.7, Neutrophils (%) (Auto) 52.7, Lymphocytes (%) (Auto) 25.8, Monocytes (%) (Auto) 18.6H, Eosinophils (%) (Auto) 1.9, Basophils (%) (Auto) 1.0, Sodium Level 138, Potassium Level 4.0, Chloride Level 103, Carbon Dioxide Level 25, Anion Gap 10, Blood Urea Nitrogen 27H, Creatinine 1.6H, Estimat Glomerular Filtration Rate 53.6, Glucose Level 96, Calcium Level 8.9 Current Medications Medications (Trade) Dose Ordered Sig/Shemar Route PRN Reason Start Time Stop Time Status Last Admin Dose Admin Amiodarone HCl (Cordarone) 200 mg DAILY ORAL 08/13/19 10:15 09/12/19 10:14 08/15/19 09:12 Aspirin (ASA) 81 mg DAILY ORAL 08/13/19 10:15 09/12/19 10:14 08/15/19 09:12 Bisacodyl (Dulcolax) 10 mg DAILYPRN PRN RECTAL Constipation 08/14/19 16:15 09/13/19 16:14 08/14/19 17:18 Carvedilol (Coreg) 6.25 mg EVERY 12 HOURS ORAL 08/13/19 10:15 09/12/19 10:14 08/15/19 09:12 Docusate Sodium (Colace) 100 mg TWICE A DAY ORAL 08/14/19 18:00 09/13/19 17:59 08/15/19 09:12 Furosemide (Lasix) 40 mg DAILY ORAL 08/15/19 09:00 09/14/19 08:59 08/15/19 09:12 Lisinopril (ZestriL) 5 mg DAILY ORAL 08/13/19 10:15 09/12/19 10:14 08/15/19 09:12 Morphine Sulfate (Morphine Sulfate) 2 mg Q4H PRN IVP Severe Pain (Pain Scale 7-10) 08/13/19 20:15 08/20/19 20:14 08/14/19 19:57 Non-Formulary Medication (Non-Formulary Med) 1 ea DAILY ORAL 08/13/19 10:15 09/12/19 10:14 UNV Zolpidem Tartrate (Ambien) 5 mg HSPRN PRN ORAL Insomnia 08/14/19 03:45 08/21/19 03:44 08/14/19 20:36 Alfredo Bettencourt MD Aug 15, 2019 10:33
--- NOTE | 2019-08-15 11:46 | NUR ---
NURSE NOTES: Dr. Soni made aware patient has been cleared for discharge by Dr. Rivera, Dr. Eid and Dr. Bettencourt. Doctor Zachariah said he will look into it this afternoon. will follow.
[2019-08-15 12:00] VITALS: BP 137/98
--- NOTE | 2019-08-15 13:28 | NUR ---
NURSE NOTES: Received message from Dr. Soni. He will be in to see patient in an hour.
--- NOTE | 2019-08-15 14:55 | NUR ---
NURSE NOTES: Dr. Soni in to see patient. order received to discharge patient today. noted
--- NOTE | 2019-08-15 15:00 | General Progress Note ---
Assessment/Plan Problem List: (1) SOB (shortness of breath) ICD Codes: R06.02 - Shortness of breath SNOMED: 854198899 (2) Renal insufficiency ICD Codes: N28.9 - Disorder of kidney and ureter, unspecified SNOMED: 374626058, 640618819 (3) HIV disease ICD Codes: B20 - Human immunodeficiency virus [HIV] disease SNOMED: 41404860 (4) CHF exacerbation ICD Codes: I50.9 - Heart failure, unspecified SNOMED: 138612680, 68054477146753 Qualifiers: Qualified Codes: I50.9 - Heart failure, unspecified (5) ICD (implantable cardioverter-defibrillator) in place ICD Codes: Z95.810 - Presence of automatic (implantable) cardiac defibrillator SNOMED: 617335726, 915758336 Status: stable, progressing Assessment/Plan: o2 pulm tx pt diet cbc bmp am dc if clear Subjective Constitutional: Reports: weakness Allergies: Coded Allergies: No Known Allergies (Verified , 05/29/07) All Systems: reviewed and negative except above Subjective sitting calm Objective Last 24 Hour Vital Signs Date Time Temp Pulse Resp B/P (MAP) Pulse Ox O2 Delivery O2 Flow Rate FiO2 08/15/19 12:00 72 08/15/19 12:00 97.7 71 20 137/98 (111) 94 08/15/19 09:12 129/66 08/15/19 09:12 70 129/66 08/15/19 09:00 Room Air 08/15/19 08:00 98.1 70 20 129/66 (87) 96 08/15/19 08:00 72 08/15/19 04:00 97.7 70 16 128/85 (99) 97 08/15/19 04:00 72 08/15/19 00:00 68 08/15/19 00:00 97.5 65 16 140/98 (112) 98 08/14/19 21:00 Room Air 08/14/19 20:31 67 132/84 08/14/19 20:28 97.1 08/14/19 20:00 97.0 67 16 132/84 (100) 95 08/14/19 20:00 64 08/14/19 16:00 97.1 58 17 122/87 (99) 96 08/14/19 16:00 61 Intake and Output 2/26/20 2/27/20 19:00 07:00 Intake Total 800 ml Balance 800 ml Other 800 ml # Voids 3 Laboratory Tests 08/15/19 05:25: White Blood Count 7.8, Red Blood Count 3.89L, Hemoglobin 12.2L, Hematocrit 37.0L , Mean Corpuscular Volume 95, Mean Corpuscular Hemoglobin 31.5H, Mean Corpuscular Hemoglobin Concent 33.1, Red Cell Distribution Width 16.9H, Platelet Count 319, Mean Platelet Volume 9.7, Neutrophils (%) (Auto) 52.7, Lymphocytes (%) (Auto) 25.8, Monocytes (%) (Auto) 18.6H, Eosinophils (%) (Auto) 1.9, Basophils (%) (Auto) 1.0, Sodium Level 138, Potassium Level 4.0, Chloride Level 103, Carbon Dioxide Level 25, Anion Gap 10, Blood Urea Nitrogen 27H, Creatinine 1.6H, Estimat Glomerular Filtration Rate 53.6, Glucose Level 96, Calcium Level 8.9 Height (Feet): 5 Height (Inches): 7.00 Weight (Pounds): 150 General Appearance: lethargic EENT: normal ENT inspection Neck: normal alignment Cardiovascular: normal peripheral pulses, normal rate, regular rhythm Respiratory/Chest: chest wall non-tender, lungs clear, normal breath sounds Abdomen: normal bowel sounds, non tender, soft Extremities: normal inspection Edema: no edema noted Arm (L), no edema noted Arm (R), no edema noted Leg (L), no edema noted Leg (R), no edema noted Pedal (L), no edema noted Pedal (R), no edema noted Generalized Neurologic: responsive, motor weakness Skin: normal pigmentation, warm/dry Prakash Soni DO Aug 15, 2019 15:00
--- NOTE | 2019-08-15 15:45 | NUR ---
NURSE NOTES: Patient is being discharged from medical care to home as per Dr. Soni's order. Awake, alert and oriented x4. After care instructions, including referral to community resources were given. Patient verbalized understanding of After care instructions; at this time patient does not request medications, equipment. Patient signed patient consent in the medical record for patient destination upon discharge. All medical devices such as IV and ID band were removed. Patient ambulated out with all personal belongings with steady gait. transportation/taxi provided.
--- NOTE | 2019-08-16 16:39 | NUR ---
*-* INSURANCE *-* ALL CLINICAL AND REVIEWS HAVE BEEN FAXED TO: [facility]: [facility] REF# [id number] F: [phone]
--- NOTE | 2019-08-19 09:29 | Discharge Summary ---
Discharge Summary Discharge Summary _ DATE OF ADMISSION: 08/12/2019 DATE OF DISCHARGE: 08/15/2019 DISCHARGED BY: Dr Soni REASON FOR ADMISSION: 59 years old male with past medical history of hypertension, myocardial infarction 2004, HIV status, was brought by paramedics from home due to increased shortness of breath for the last 4 days , while walking. He denied fever and chills. No chest pain. Patient reported history of ICD. Patient reported compliance with his medication. Upon evaluation vital signs were stable. Laboratory work-up revealed no leukocytosis, hemoglobin 12.4, hematocrit 40, platelet count 296. Stable electrolytes. BUN 27, creatinine 2.2. Glucose 135. Total bilirubin 2.1 direct bilirubin 1.1. AST 101 ALT 85. Troponin 0.016, pro BNP 692. EKG revealed sinus rhythm, no acute ischemic changes. Chest x-ray revealed cardiomegaly , interstitial congestion and evidence of AICD. In emergency department patient received Lasix and admitted for further management. CONSULTANTS: automatic nailing machine operator Dr. Ernst pulmonary Dr. Bettencourt embossing machine operator helper Dr. Dr.De Street HOSPITAL COURSE: Patient admitted to telemetry floor. Venous duplex bilateral lower extremity revealed no evidence of acute DVT. Echocardiogram revealed ejection fraction of 15 to 20% with severe global left ventricular hypokinesis. No evidence of pericardial effusion. Moderate mitral and tricuspid regurgitation. Elevated left atrial pressure grade 3. Right ventricular systolic pressure of 79, consistent with severe pulmonary hypertension. Guideline directed medical therapy with beta-emilie , RAMÓN inhibitor and diuretic/Lasix provided. Aldactone was on hold in view of renal failure and risk of hyperkalemia. Patient exhibited paroxysmal atrial fibrillation , but spontaneously converted to sinus rhythm. Beta-emilie , amiodarone and aspirin continued. Defibrillator was interrogated and showed normal functioning with battery life of 2.5 years. It also showed history of multiply shocks in the past. Insurance Risk Manager followed. Per embossing machine operator helper , patient had chronic kidney disease stage 3b , secondary to component of volume depletion. Nonsteroid anti-inflammatory medication were discontinued. Creatinine was closely monitored, down to 1.6. Lasix was changed to oral . Insurance Risk Manager cleared to continue lisinopril , but no ibuprofen. Pain management was addressed as needed. Supportive care provided. Patient clinically stabilized and was ready for discharge home. FINAL DIAGNOSES: Acute systolic CHF exacerbation with ejection fraction 15 to 20% Severe cardiomyopathy Paroxysmal atrial fibrillation Status post [place] defibrillator implantation Shortness of breath/due to CHF exacerbation Chronic kidney disease stage 3b HIV DISCHARGE MEDICATIONS: See Medication Reconciliation list. DISCHARGE INSTRUCTIONS: Patient was discharged home. Follow-up with a primary care provider in 1 week. I have been assigned to dictate discharge summary for this account. I was not involved in the patient's management. Aster Bustillos NP Aug 19, 2019 09:29
--- NOTE | 2019-08-19 13:34 | NUR ---
*-* INSURANCE *-* DISCHARGE SUMMARY HAS BEEN FAXED TO: [facility]: [facility] REF# [id number] F: [phone]
--- NOTE | 2019-08-26 10:29 | NUR ---
*-* INSURANCE *-* DISCHARGE SUMMARY HAS BEEN FAXED TO: [facility]: SHANNAN REF# [id number] F: [phone]
== END 2019-08-15 16:11 | disposition home or self-care (01) | DRG 194 ==
LOC: EDBD 17:31 → EMR 19:47 → 2E 20:23 → EDBEDREQ 08-13 06:25 → UNDOADMIN 08-13 07:45 → 2E 08-13 07:45
DX: I13.0 Hypertensive heart and chronic kidney disease with heart failure and stage 1 through stage 4 chronic kidney disease, or unspecified chronic kidney disease (principal); I50.21 Acute systolic (congestive) heart failure; B20 Human immunodeficiency virus [HIV] disease; E46 Unspecified protein-calorie malnutrition; N18.3 Chronic kidney disease, stage 3 (moderate); N17.9 Acute kidney failure, unspecified; I25.2 Old myocardial infarction; I42.9 Cardiomyopathy, unspecified; I48.0 Paroxysmal atrial fibrillation; Z95.810 Presence of automatic (implantable) cardiac defibrillator
CPT/HCPCS: 36415; 71045; 76700; 80048; 80053; 82248; 83880; 84443; 84484; 85025; 93005; 93306; 93970; 96374; 97803; 99285; J8499